=== PATIENT | male | born 1945 | race Caucasian/White ===

== ENCOUNTER → 2016-07-28 | Day surgery (SDC) | payer OTHER ==
[2016-07-21 12:04] VITALS: BMI 31.0
[~2016-07-28] VITALS: Ht 188 cm; Wt 110.0 kg
[~2016-07-28] MED LIST: ASPI-232 PO; CALC-354 PO; CHOL100010 PO; LANS30CA12 PO; LIDOCAINE HCL 2% 2 ML VIAL (20MG/ML) ONE; LOSA100T2 PO; METO-479 PO; MIDAZOLAM HCL 1 MG/ML 2ML VIAL ONE; MULTTAB58 PO; ONDANSETRON INJ 2 MG/ML 2 ML VIAL ONE; POTA10CA28 PO; PROPOFOL IV EMULSION 10 MG/ML 20 ML VIAL IV ONE
[2016-07-28 10:55] VITALS: Ht 188 cm; Wt 110.0 kg
--- NOTE | 2016-07-28 11:08 | Endo History and Physical ---
History & Physical Date of Service: Jul 28, 2016. Chief Complaint: 10 YEAR FOLLOW UP Referring Physician: DR BAUM History of Present Illness 70 yo CM who presents for screening colonoscopy. Past Surgical History Hx Cardiac Surgery: No Hx Internal Defibrillator: No Hx Pacemaker: No Hx Abdominal Surgery: No Hx of Implantable Prosthesis: No Hx Post-Op Nausea and Vomiting: No Hx Cancer Surgery: No Hx Thoracic Surgery: No Hx Orthopedic: Yes (MICRODISCECTOMY) Hx Urinary Tract Surgery: No Family History None Social History Smoking Status: Former Smoker Hx Substance Use: No Hx Alcohol Use: No Allergies Coded Allergies: No Known Allergies (Verified , 07/28/16) Current Medications Reported Home Medications Medications Dose Route/Sig Max Daily Dose Days Date Category Caltrate 600+D (Calcium Carbonate-Cholecalcife) 1 Tab Tab 1 Tab PO BID 07/21/16 Reported Vitamin D (Cholecalciferol) 1,000 Inter.unit Tab 1,000 Inter.unit PO BID 08/03/13 Reported Multivitamin (Multiple Vitamin) 1 Tab Tab 1 Tab PO QAM 04/26/13 Reported Aspir-81 (Aspirin) 81 Mg Tab 1 Tab PO QAM 04/26/13 Reported Micro-K Ext Rel (Potassium Chloride) 10 Meq Cap 10 Meq PO QAM 04/26/13 Reported Toprol Xl (Metoprolol Succinate) 100 Mg Tab 100 Mg PO BID 04/26/13 Reported Hyzaar (Losartan Potassium & Hydrochlo) 1 Tab Tab 100 Mg PO QAM 04/26/13 Reported Prevacid (Lansoprazole) 30 Mg Capcr 30 Mg PO QAM 04/26/13 Reported Vital Signs Weight (Kilograms): 110.00 Height (Feet): 6 Height (Inches): 2 Physical Exam General Appearance: WD/WN, no apparent distress Respiratory/Chest: Auscultation: breath sounds normal Cardiovascular: Heart Auscultation: RRR Abdomen: Bowel Sounds: normal Inspection & Palpation: soft, non-distended, no tenderness, guarding & rebound Assessment and Plan Assessment: 70 yo CM who presents for screening colonoscopy. Plan: Proceed with colonoscopy.
--- NOTE | 2016-07-28 11:58 | Discharge Instructions ---
Endoscopy Patient Instructions Date / Procedure(s) Performed Jul 28, 2016. Colonoscopy Allergy Information Coded Allergies: No Known Allergies (Verified , 07/28/16) Discharge Date / Findings Jul 28, 2016. Internal hemorrhoids Medication Instructions Stopped Medication(s): ASPIRIN Restart Stopped Medication(s): Reported Home Medications Medications Dose Route/Sig Max Daily Dose Days Date Category Caltrate 600+D (Calcium Carbonate-Cholecalcife) 1 Tab Tab 1 Tab PO BID 07/21/16 Reported Vitamin D (Cholecalciferol) 1,000 Inter.unit Tab 1,000 Inter.unit PO BID 08/03/13 Reported Multivitamin (Multiple Vitamin) 1 Tab Tab 1 Tab PO QAM 04/26/13 Reported Aspir-81 (Aspirin) 81 Mg Tab 1 Tab PO QAM 04/26/13 Reported Micro-K Ext Rel (Potassium Chloride) 10 Meq Cap 10 Meq PO QAM 04/26/13 Reported Toprol Xl (Metoprolol Succinate) 100 Mg Tab 100 Mg PO BID 04/26/13 Reported Hyzaar (Losartan Potassium & Hydrochlo) 1 Tab Tab 100 Mg PO QAM 04/26/13 Reported Prevacid (Lansoprazole) 30 Mg Capcr 30 Mg PO QAM 04/26/13 Reported OK to resume all medications today as prescribed Provider Instructions Activity Restrictions - No exercising or heavy lifting for 24 hours. - Do not drink alcohol the day of the procedure. - Do not drive a car or operate machinery until the day after the procedure. - Do not make any important decisions or sign important papers in 24 hours after the procedure. Following Day: - Return to full activity which may include returning to work/school. Diet Start your diet with liquids and light foods (jello, soup, juice, toast). Then eat your usual diet if not nauseated. Treatment For Common After Affects For mild abdominal pain, bloating, or excessive gas: - Rest - Eat lightly - Lie on right side Follow-Up Information Follow-up with DR BAUM as scheduled Anesthesia Information What You Should Know You have had a procedure that required some medicine to reduce anxiety and discomfort. This treatment is called moderate sedation. After receiving the treatment, you may be sleepy, but you will be able to breathe on your own. The effects of the treatment may last for several hours. Follow these instructions along with Activity/Diet recommendations noted above: * Do NOT do anything where dizziness or clumsiness would be dangerous. * Rest quietly at home today, then you can be up and about tomorrow. * Have a responsible person stay with you the rest of today. * You may have had an I.V. today. If so, you may take the dressing off later today. Recommendations Call your doctor if: * Trouble breathing * Continuous vomiting for more than 24 hours * Temperature above 101 degrees * Severe abdominal pain or bloating * Pain not relieved by pain medicine ordered * There is increased drainage or redness from any incision * A large amount of rectal bleeding greater than 2-3 tablespoons. (If you had a polyp/s removed or have hemorrhoids, a small amount of blood - from the rectum is to be expected.) * You have any unanswered questions or concerns. IN THE EVENT OF A SERIOUS EMERGENCY, GO TO THE NEAREST EMERGENCY ROOM Your discharge instructions were prepared by provider Omega Davalos. Patient Instructions Signature Page Clive Walton Patient (or Guardian) Signature/Date: I have read and understand the instructions given to me by my caregivers. Caregiver/RN/Doctor Signature/Date: The above-named patient and/or guardian has received patient instructions on this date. + Original Patient Signature Page (only) stays with chart. Please make copy for patient.
--- NOTE | 2016-07-28 12:01 | GI REPORT ---
Procedure Date: 07/28/2016 11:30 AM Procedure: Colonoscopy Indications: Screening for colorectal malignant neoplasm Medicines: Monitored Anesthesia Care Complications: No immediate complications. Estimated Blood Loss: Estimated blood loss: none. Procedure: Pre-Anesthesia Assessment: - Prior to the procedure, a History and Physical was performed, and patient medications and allergies were reviewed. The patient's tolerance of previous anesthesia was also reviewed. The risks and benefits of the procedure and the sedation options and risks were discussed with the patient. All questions were answered, and informed consent was obtained. Prior Anticoagulants: The patient has taken aspirin, last dose was 5 days prior to procedure. ASA Grade Assessment: II - A patient with mild systemic disease. After reviewing the risks and benefits, the patient was deemed in satisfactory condition to undergo the procedure. After I obtained informed consent, the scope was passed under direct vision. Throughout the procedure, the patient's blood pressure, pulse, and oxygen saturations were monitored continuously. The scope was introduced through the anus and advanced to the terminal ileum. The colonoscopy was performed without difficulty. The patient tolerated the procedure well. The quality of the bowel preparation was good. The terminal ileum, ileocecal valve, appendiceal orifice, and rectum were photographed. Findings: Non-bleeding internal hemorrhoids were found during retroflexion. The hemorrhoids were small. The exam was otherwise without abnormality. Impression: - Non-bleeding internal hemorrhoids. - The examination was otherwise normal. - No specimens collected. Recommendation: - Resume previous diet. - Continue present medications. - No repeat colonoscopy due to age and the absence of advanced adenomas. - Return to primary care physician as previously scheduled. Omega Davalos, DO 07/28/2016 12:00:13 PM This report has been signed electronically. Note Initiated On: 07/28/2016 11:30 AM
[2016-07-28 12:20] VITALS: BP 120/78; PULSE 59; O2SAT 95
--- NOTE | 2016-07-28 12:28 | Anesthesiology Progress Note ---
Anesthesia Post Op Note Date & Time Jul 28, 2016 at 12:28 Vital Signs Pain Intensity: 0 Vital Signs Past 12 Hours Date Time Temp Pulse Resp B/P Pulse Ox O2 Delivery O2 Flow Rate FiO2 07/28/16 12:20 59 18 120/78 95 Room Air 07/28/16 12:05 67 18 113/64 95 Room Air 07/28/16 11:50 59 20 115/66 97 Mask 5 07/28/16 11:04 36.8 68 20 168/87 97 Room Air Notes Mental Status: alert / awake / arousable Nausea / Vomiting: adequately controlled Pain: adequately controlled Airway Patency, RR, SpO2: stable & adequate BP & HR: stable & adequate Hydration State: stable & adequate Anesthetic Complications: no major complications apparent
== END | disposition home or self-care (01) ==
LOC: C.GI 10:47
PROVIDERS: ATTEND Internal Medicine
DX: Z12.11 Encounter for screening for malignant neoplasm of colon (principal); Z87.891 Personal history of nicotine dependence; K64.8 Other hemorrhoids; Z79.82 Long term (current) use of aspirin; Z85.46 Personal history of malignant neoplasm of prostate; I10 Essential (primary) hypertension; K21.9 Gastro-esophageal reflux disease without esophagitis; Z86.79 Personal history of other diseases of the circulatory system

== ENCOUNTER → 2016-08-06 | Outpatient (CLI) | payer OTHER ==
[~2016-08-06] MED LIST changes: -LIDOCAINE HCL 2% 2 ML VIAL (20MG/ML) ONE; -METO-479 PO; +METO1TAB68 PO; -MIDAZOLAM HCL 1 MG/ML 2ML VIAL ONE; -ONDANSETRON INJ 2 MG/ML 2 ML VIAL ONE; -PROPOFOL IV EMULSION 10 MG/ML 20 ML VIAL IV ONE
[2016-08-06 10:02] LABS: MANUAL MICROSCOPIC REQUIRED? NO; REVIEW REQ? NO; URINE APPEARANCE CLEAR (CLEAR); URINE BILIRUBIN NEG (NEG); URINE COLOR YELLOW; URINE NITRITE NEG (NEG); URINE PH 5.5 (4.5-7.5); URINE SPECIFIC GRAVITY 1.021 (1.000-1.030); UROBILINOGEN NEG (NEG)
== END | disposition home or self-care (01) ==
LOC: C.LAB1850 09:19
PROVIDERS: ATTEND Internal Medicine Pulmonary Disease
DX: C61 Malignant neoplasm of prostate (principal)

== ENCOUNTER → 2016-08-11 | Outpatient (CLI) | payer OTHER ==
--- NOTE | 2016-08-11 09:10 | DIAGNOSTIC IMAGING REPORT ---
[facility] CLINICAL HISTORY: C61 Adenocarcinoma of [id number] [id number] COMPARISON STUDY: No previous studies for comparison. FINDINGS: There is no pathologic bowel dilatation. There are no calcification suspicious for renal calculi. Pelvic basin calcifications while nonspecific likely represent phleboliths. IMPRESSION: 1. No renal calculi identified on conventional radiographic evaluation 2. No evidence of pathologic bowel dilatation Electronically signed by: Jose Luz M.D. 08/11/2016 9:08 AM Dictated Date/Time: 08/11/2016 9:08 AM
== END | disposition home or self-care (01) ==
LOC: C.RAD 08:49
PROVIDERS: ATTEND Urology
DX: C61 Malignant neoplasm of prostate (principal); R31.9 Hematuria, unspecified

== ENCOUNTER → 2017-01-06 | Outpatient (CLI) | payer OTHER ==
[~2017-01-06] MED LIST changes: +METO-479 PO; -METO1TAB68 PO
[2017-01-06 09:40] LABS: BASO % 0.3 %; BASO ABS # 0.02 K/uL (0-0.2); COMPLETE YES; EOS % 1.8 %; HEMATOCRIT 42.2 % (42-52); IG% 0.1 %; LYMPH % 36.6 %; LYMPH ABS # 2.66 K/uL (1.2-3.4); MEAN CELL VOLUME 92.1 fL (80-100); MEAN CORPUSCULAR HEMOGLOBIN 33.6 pg (25-34); MEAN CORPUSCULAR HGB CONC 36.5 g/dl (32-36); MEAN PLATELET VOLUME 11.2 fL (7.4-10.4); MONO % 9.4 %; NEUT % 51.8 %; PLATELET COUNT 202 K/uL (130-400); RED BLOOD COUNT 4.58 M/uL (4.7-6.1); WHITE BLOOD COUNT 7.26 K/uL (4.8-10.8)
[2017-01-06 09:46] LABS: URINE APPEARANCE CLEAR (CLEAR); URINE BILIRUBIN NEG (NEG); URINE COLOR YELLOW; URINE NITRITE NEG (NEG); URINE PH 6.5 (4.5-7.5); URINE SPECIFIC GRAVITY 1.011 (1.000-1.030); UROBILINOGEN NEG (NEG)
[2017-01-06 09:55] LABS: MANUAL MICROSCOPIC REQUIRED? NO; REVIEW REQ? NO
[2017-01-06 09:57] LABS: ESTIMATED AVERAGE GLUCOSE 126 mg/dl; HA1C FLAG Normal (Normal)
[2017-01-06 10:08] LABS: CALCIUM 8.8 mg/dl (8.5-10.1)
[2017-01-06 10:09] LABS: ALT/SGPT 45 U/L (12-78); BLOOD UREA NITROGEN 15 mg/dl (7-18); BUN/CREATININE RATIO 16.2 (10-20); CARBON DIOXIDE 26 mmol/L (21-32); CHLORIDE 106 mmol/L (98-107); CHOLESTEROL 166 mg/dl (0-200); CREATININE 0.94 mg/dl (0.60-1.40); GLUCOSE 131 mg/dl (70-99); SODIUM 141 mmol/L (136-145); TRIGLYCERIDES 267 mg/dl (0-150); VERY LOW DENSITY LIPOPROT CALC 53 mg/dl
[2017-01-06 10:20] LABS: ALKALINE PHOSPHATASE 49 U/L (45-117); AST/SGOT 23 U/L (15-37); CHOLESTEROL/HDL RATIO 5.9; HDL CHOLESTEROL 28 mg/dl; LDL CHOLESTEROL CALCULATED 85 mg/dl; PROSTATE SPECIFIC ANTIGEN 0.426 ng/ml (0.000-4.000)
== END | disposition home or self-care (01) ==
LOC: C.LAB1850 07:57
PROVIDERS: ATTEND Internal Medicine Pulmonary Disease
DX: R31.9 Hematuria, unspecified (principal); C61 Malignant neoplasm of prostate; I48.91 Unspecified atrial fibrillation; I10 Essential (primary) hypertension; R73.9 Hyperglycemia, unspecified; E78.5 Hyperlipidemia, unspecified

== ENCOUNTER → 2017-03-10 | Outpatient (CLI) | payer OTHER ==
[~2017-03-10] MED LIST changes: -METO-479 PO; +METO1TAB68 PO
[2017-03-10 10:25] LABS: BLOOD UREA NITROGEN 18 mg/dl (7-18); CREATININE 0.94 mg/dl (0.60-1.40)
== END | disposition home or self-care (01) ==
LOC: C.LAB1850 09:09
PROVIDERS: ATTEND Psychiatry & Neurology Neurology
DX: Z00.00 Encounter for general adult medical examination without abnormal findings (principal)

== ENCOUNTER → 2017-03-16 | Outpatient (CLI) | payer OTHER ==
[~2017-03-16] MED LIST changes: +GADAVIST IV PRN
--- NOTE | 2017-03-16 12:27 | DIAGNOSTIC IMAGING REPORT ---
MRI OF THE BRAIN COMBO CLINICAL HISTORY: Headache and dizziness. COMPARISON STUDY: No priors. TECHNIQUE: MRI of the brain was performed utilizing various T1 and T2-weighted sequences in the axial, sagittal, and coronal planes. Contrast-enhanced sequences were acquired following the administration of 11 cc of Gadavist. FINDINGS: Brain parenchyma: There are age-related involutional changes noting minimal periventricular microangiopathic disease. There is no hemorrhage or mass effect. There is no restricted diffusion to suggest acute ischemia. No enhancing mass lesion is identified on the postcontrast images. Sanchez-white matter differentiation is preserved. No extra-axial fluid collection is seen. The cerebellar tonsils are normal in configuration. Ventricles, sulci, and cisterns: Prominent second or to involutional change. Pituitary and sella: Unremarkable. Intracranial vasculature: Normal flow voids are maintained at the skull base. Orbits: The bony orbits are grossly intact. Orbital contents are normal in appearance. Sinuses and mastoids: There is a tiny retention cyst in the right maxillary antrum. The paranasal sinuses and mastoid air cells are otherwise clear. Calvarium: Unremarkable. Cervical cord: Partially visualized cervical spinal cord is normal in morphology and signal intensity. IMPRESSION: No acute intracranial abnormality. Electronically signed by: Jim Siddiqi M.D. 03/16/2017 12:26 PM Dictated Date/Time: 03/16/2017 12:23 PM
== END | disposition home or self-care (01) ==
LOC: C.MRIBC 11:42
PROVIDERS: ATTEND Psychiatry & Neurology Neurology
DX: R42 Dizziness and giddiness (principal); R51 Headache

== ENCOUNTER → 2017-05-19 | Outpatient (CLI) | payer OTHER ==
[2015-05-14 13:12] VITALS: BP 122/71; PULSE 62
[~2017-05-19] MED LIST changes: -GADAVIST IV PRN; +METO-479 PO; -METO1TAB68 PO
[2017-05-19 14:18] VITALS: BP 119/67; PULSE 60; TEMP 36.5; O2SAT 97
--- NOTE | 2017-05-19 16:08 | Radiation Oncology Follow-Up ---
Radiation Oncology Follow-Up Date of Visit May 19, 2017. Reason For Visit Annual follow-up Radiation Completion Date Hormonal therapy;IMRT 09/22/13 Diagnosis (1) Prostate cancer Status: Resolved Onset Date: 03/24/2013 Location: left lobe of the prostate Histology Subtype: adenocarcinoma Stage: ll Permanent Comment: History of benign prostatic hypertrophy rising PSA to 6.15 Status post ultrasound-guided biopsy biopsy stage TIIb Reji 4+3 Initiation of hormonal suppression total 4 months Status post completion of radiation therapy with IMRT/IGRT completed 09/22/2013 received 8040 cGy. Last Edited By: Alba Quiroz on May 14, 2015 17:07 Interim History He has been doing well this past year for urinary standpoint. His AUA score was 1. Last year his AUA score was 4. He completed and expanded prostate cancer index composite for clinical practice and gave a score of 0 of 12 and urinary incontinence symptoms. He gave a score of 0 of 12 in urinary irritation symptoms. He gave a score of 0 of 12 bowel symptoms. He gave a score of 6 of 12 in sexual symptoms. He gave a score of 0 12 and hormonal vitality symptoms. His total was 6 of 60. He does not require any medication to help with urination. He has been followed closely by Dr. Park every 6 month. His PSAs are unfortunately slowly going up. He had a PSA 06/09/2016 that was 0.283. He had a PSA 01/06/2017 and that was 0.426. His next PSA will be in June. Allergies Coded Allergies: No Known Allergies (Verified , 07/28/16) Home Medications Scheduled Aspirin (Aspir-81), 1 TAB PO QAM Calcium Carbonate-Cholecalcife (Caltrate 600+D), 1 TAB PO BID Cholecalciferol (Vitamin D), 1,000 INTER.UNIT PO BID Lansoprazole (Prevacid), 30 MG PO QAM Losartan Potassium & Hydrochlo (Hyzaar), 100 MG PO QAM Metoprolol Succinate (Toprol Xl), 100 MG PO BID Multiple Vitamin (Multivitamin), 1 TAB PO QAM Potassium Chloride (Micro-K Ext Rel), 10 MEQ PO QAM Review of Systems Gastrointestinal: Symptoms: WNL GI Comments: No fiber supplements Oral: Symptoms: No Problems Respiratory: Symptoms: WNL Urinary: Symptoms: WNL Comments: " occ nocturia times 1, but not every night " Skin: Symptoms: No Problems Physical Exam Vital Signs Date Time Temp Pulse Resp B/P (MAP) Pulse Ox O2 Delivery O2 Flow Rate FiO2 05/19/17 14:18 36.5 60 12 119/67 97 Pain: Side: Bilateral Patient Pain Scale: 0 - 10 Initial Pain Intensity: 0.0 Fatigue: None General Appearance: no apparent distress Eyes: normal inspection, EOMI ENT: normal ENT inspection, hearing grossly normal Neck: no adenopathy, thyroid normal Respiratory/Chest: lungs clear, no respiratory distress, no accessory muscle use Cardiovascular: regular rate, rhythm, no gallop, no murmur Abdomen: non tender, soft, no organomegaly Anal / Rectum: Normal sphincter tone. One small external hemorrhoid. No rectal masses no rectal bleeding. Prostate smooth without nodules. Extremities: no pedal edema Neurologic/Psychiatric: no motor/sensory deficits, alert, normal mood/affect Skin: warm/dry Lymphatic: no adenopathy Laboratory Studies Test 03/10/17 09:11 Blood Urea Nitrogen 18 mg/dl (7-18) Creatinine 0.94 mg/dl (0.60-1.40) Estimated GFR () 93.5 Estimated GFR (Non- 80.7 Assessment & Plan Plan: PSAs were reviewed. He'll be having a recheck in June. It is hopeful that the PSA will stabilize. Continue regular follow-up with his primary care physician. We asked him to return to our office in 1 year. He may call if he has any questions or concerns in the interim. Total Time In Follow-Up I spent 20 minutes speaking to the patient and performing examination. I spent 15 minutes reviewing information in completing this note. Copy To Betito Rubio M.D.; [place] M.D.
== END | disposition home or self-care (01) ==
LOC: C.ONC 14:08
PROVIDERS: ATTEND Physician Assistant Medical
DX: Z08 Encounter for follow-up examination after completed treatment for malignant neoplasm (principal); Z92.3 Personal history of irradiation; Z85.46 Personal history of malignant neoplasm of prostate

== ENCOUNTER → 2017-07-12 | Outpatient (CLI) | payer OTHER | END | disposition home or self-care (01) | LOC: C.LAB1850 09:54 | PROVIDERS: ATTEND Urology | DX: C61 Malignant neoplasm of prostate (principal); I48.91 Unspecified atrial fibrillation; I10 Essential (primary) hypertension; R73.9 Hyperglycemia, unspecified; E78.5 Hyperlipidemia, unspecified; K21.9 Gastro-esophageal reflux disease without esophagitis ==

== ENCOUNTER → 2017-08-31 | Outpatient (CLI) | payer OTHER ==
[2017-08-31 12:31] LABS: INFLUENZA B ANTIGEN Neg for Influ B (NEG)
== END | disposition home or self-care (01) ==
LOC: C.LAB1850 10:29
PROVIDERS: ATTEND Internal Medicine Pulmonary Disease
DX: J11.1 Influenza due to unidentified influenza virus with other respiratory manifestations (principal)

== ENCOUNTER → 2017-09-08 | Outpatient (CLI) | payer OTHER ==
--- NOTE | 2017-09-08 13:34 | DIAGNOSTIC IMAGING REPORT ---
CHEST 2 VIEWS ROUTINE HISTORY: 71 years-old Male J02.9 Pharyngitis acute coughing with congestion COMPARISON: [facility] 08/11/2016 TECHNIQUE: PA and lateral views of the chest FINDINGS: Cardiomediastinal and hilar silhouettes are within normal limits. Atherosclerosis of the aorta. Linear subsegmental opacity of the angular suggests atelectasis or scarring. There is no pneumothorax, pleural effusion, focal airspace consolidation or overt pulmonary edema. Degenerative changes are seen within the shoulders and spine. IMPRESSION: No acute process. The above report was generated using voice recognition software. It may contain grammatical, syntax or spelling errors. Electronically signed by: Chu Li M.D. 09/08/2017 1:32 PM Dictated Date/Time: 09/08/2017 1:31 PM
== END | disposition home or self-care (01) ==
LOC: C.RAD1850 13:22
PROVIDERS: ATTEND Internal Medicine Pulmonary Disease
DX: J02.9 Acute pharyngitis, unspecified (principal)